=== PATIENT | female | born 1960 | race Native Hawaiian/Other Pacific Islander ===

== ENCOUNTER 2023-03-08 09:49 | Outpatient (CLI) | payer OTHER | END 2023-03-08 19:00 | disposition home or self-care (01) | LOC: MAMMO 09:49 | PROVIDERS: ATTEND Family Medicine | DX: Z12.31 Encounter for screening mammogram for malignant neoplasm of breast (principal) ==

== ENCOUNTER 2023-04-04 09:29 | Outpatient (CLI) | payer OTHER | END 2023-04-04 20:20 | disposition home or self-care (01) | LOC: MAMMO 09:29 | PROVIDERS: ATTEND Family Medicine | DX: R92.8 Other abnormal and inconclusive findings on diagnostic imaging of breast (principal) ==

== ENCOUNTER 2023-04-07 09:01 | Outpatient (CLI) | payer OTHER ==
[~2023-04-07] VITALS: Ht 165.1 cm; Wt 72.6 kg
== END 2023-04-07 19:12 | disposition home or self-care (01) ==
LOC: US 09:01
PROVIDERS: ATTEND Family Medicine
DX: N63.10 Unspecified lump in the right breast, unspecified quadrant (principal)